=== PATIENT | female | born 1975 | race Caucasian/White ===

== ENCOUNTER 2025-03-29 21:42 | Emergency (ER) | payer SELFPAY ==
--- OUTSIDE RECORDS SUMMARY | 2025-01-30 11:30 | XMS_ITS ---
Author Organization Formerly [facility] vices Address [address] [place], [place] [phone] Care Team Providers Care Fire Protection Designer Name Role Phone Inna Gomez Primary Care Provider [phone] REASON FOR VISIT ER PMHF UTI 01/16 Social History Sex Assigned At : Social History Observation Description Sex Assigned At Female Encounters Encounter Location Date Provider Diagnosis Main [address] [place], [place] [id number] 01/30/2025 Inna Gomez Plan Of Treatment No Information Progress Notes * Nasrin CARTAGENA KDOB:1974 (50 yo F)Acc No.[id number]:01/30/2025 Medical Note Patient: Quynh CRndcarlota Keith Provider: Carlota Gomez :1975 A ge:49 Y S ex:Female Date:01/30/2025 Address:[address] [place], [place] [phone] Subjective: * Chief Complaints: * 1 . ER PMHF UTI 01/16. * Medical History: Objective: * Vitals: Assessment: Plan: * Treatment: * Billing Information: * Visit Code: * Procedure Codes: * Electronic signature of RAHEEM Zheng sa on 03/29/2025 at 09:51 PM EDT Sign off status: Pending * Provider: Carlota Gomez Date: 0 01/30/2025 Generated for Arnaudi chris/Zaid/eTransmitting on: 0 03/29/2025 09:51 PM EDT
[2025-03-29] VITALS (16 sets, daily range): BP systolic 120; BP diastolic 77; PULSE 52–73; TEMP 36.7; O2SAT 97–100; BMI 23.2
--- OUTSIDE RECORDS SUMMARY | 2025-03-29 21:51 | XMS_ITS | Encounter Summary ---
Author Organization [employer] s tem Address [id number] [address] [place] [address] Care Team Providers Care Torch Operator Name Role Phone Elle Padilla BOX SPRING FRAME BUILDER-LENS BLANK GAUGER Primary Care Provider + Reason for Visit * Reason Comments Med Refill Encounter Details Date Type Department Care Team (Late st Contact Info) Description 01/05/2019 Refill [facility] [address] [place] [phone] Shannon Khanna APRN-LENS BLANK GAUGER [address] [place] [phone] Major depressive disorder, recurrent episode, moderate (CMS-HCC) Social History Tobacco Use Types Packs/Day Years Used Date Smoking Tobacco: Every Day Cigarettes Smokeless Tobacco: Never Alcohol Use Standard Drinks/Week Comments No 0 (1 standard drink = 0.6 oz pur e alcohol) SOCIAL DRINKER PHQ-2 Answer Date Recorded PHQ-2 Score 6 09/22/2018 Childcare Answer Date Recorded Childcare Unknown 11/10/2018 Employment Answer Date Recorded Employment Unknown 11/10/2018 Comments No Sex and Gender Information Value Date Recorded Sex Assigned at Not on file Legal Sex Female 11:31 AM EDT Gender Identity Not on file Sexual Orientation Not on file documented as of this encounter Plan of Treatment Not on file documented as of this encounter Visit Diagnoses Diagnosis Major depressive disorder, recurrent episode, moderate (CMS-HCC) Major depressive disorder, recurrent episode, moderate documented in this encounter Additional Health Concerns Infection Onset Date Last Indicated Resolved Time COVID-19 Rule-Out 08/10/2021 08/10/2021 08/10/2021 6:40 PM EST COVID-19 Positive 08/10/2021 08/10/2021 08/31/2021 11:13 PM EST COVID-19 Positive 04/07/2022 04/07/2022 04/28/2022 11:12 PM EDT COVID-19 Rule-Out 12/25/2022 12/25/2022 12/25/2022 2:49 AM EDT Influenza 12/25/2022 12/25/2022 01/01/2023 11:1 2 PM EDT COVID-19 Rule-Out 06/02/2023 06/02/2023 06/02/2023 10:05 PM EDT COVID-19 Positive 06/10/2023 06/10/2023 07/01/2023 11:12 PM EST Respiratory Rule-Out 10/03/2024 10/03/2024 025 5:57 PM EST Assessment Noted Time PHQ-9 Depression Total Score: 6 09/22/19 19 8:00 AM EST documented as of this encounter Care Teams Torch Operator Relationship Specialty Start Date End Date Elle Padilla, BOX SPRING FRAME BUILDER-LENS BLANK GAUGER [address] [place] [address] PCP - General Family Medicine 10/03/24 documented as of this encounter
--- OUTSIDE RECORDS SUMMARY | 2025-03-29 21:52 | XMS_ITS | Clinical Summary ---
Author Organization [facility] Healthcare Address [address] [place] [address] Care Team Providers Care Farm Machinery Set Up Mechanic Name Role Phone Unavailable Primary Care Provider Unavailabl e Medications cetirizine (ZyrTEC) 10 MG tablet Take 10 mg by mouth Daily as needed Active cyclobenzaprine (Flexeril) 10 MG tablet Take 10 mg by mouth 2 (two) times a day as needed 06/06/2024 Active ibuprofen 800 MG tablet Take 800 mg by mouth every 6 (six) hours if needed 12/30/2023 Active naproxen (Naprosyn) 500 MG tablet Take 500 mg by mouth in the morning and 500 mg in the evening. Take with meals. 11/01/2023 Active Immunizations Immunization Administration Dates Next Due Influenza, injectable, quadr ivalent, preservative free 07/22/2019,05/17/2019,04/30/2017 Social History Tobacco Use Types Packs/Day Years Used Date Smoking Tobacco: Never Assessed Comments Unknown Sex and Gender Information Value Date Recorded Sex Assigned at Not on file Legal Sex Female 7:08 PM EDT Gender Identity Not on file Sexual Orientation Not on file Last Filed Vital Signs Vital Sign Reading Time Taken Comments Blood Pressure - - Pulse - - Temperature - - Respiratory Rate - - Oxygen Saturation - - Inhaled Oxygen Concentration - - Weight 54 kg (119 lb) 12/20/2019 12:00 PM EDT Height 165.1 cm (5' 5 ) 12/20/2019 12:00 PM EDT Body Mass Index 19.8 12/20/2019 12:00 PM EDT Plan of Treatment Not on file
--- OUTSIDE RECORDS SUMMARY | 2025-03-29 21:52 | XMS_ITS | Encounter Summary ---
Author [facility] tem Address [id number] [address] [place] [address] Care Team Providers Care Freight Solicitor Name Role Phone Valerie Elle Orr APRN-SENIOR NETWORK ADMINISTRATOR Primary Care Provider + Reason for Visit * Reason Onset Date Comments Med Refill 04/28/2017 Encounter Details Date Type Department Care Team (Late st Contact Info) Description 04/28/2017 [facility] [address] [place] [phone] Sindhu Banegas, RN Social History Tobacco Use Types Packs/Day Years Used Date Smoking Tobacco: Every Day Cigarettes Alcohol Use Standard Drinks/Week Comments No 0 (1 standard drink = 0.6 oz pur e alcohol) SOCIAL DRINKER Comments No Sex and Gender Information Value Date Recorded Sex Assigned at Not on file Legal Sex Female 11:31 AM EDT Gender Identity Not on file Sexual Orientation Not on file documented as of this encounter Plan of Treatment Not on file documented as of this encounter Visit Diagnoses Not on filedocumented in this encounter Additional Health Concerns Infection [...] Assessment Noted Time PHQ-9 Depression Total Score: 0 04/07/20 11:00 AM EDT documented as of this encounter Care Teams Freight Solicitor Relationship Specialty Start Date End Date Elle Padilla, SALVAGER HELPER-SENIOR NETWORK ADMINISTRATOR [address] [place] [address] PCP - General Family Medicine 10/03/24 documented as of this encounter
--- OUTSIDE RECORDS SUMMARY | 2025-03-29 21:52 | XMS_ITS | Encounter Summary ---
Author Organization [employer] s tem Address [id number] [address] [place] [address] Care Team Providers Care Blueprint Engineer Name Role Phone Elle Padilla [facility] Primary Care Provider + Reason for Visit * Reason Comments Med Refill Encounter Details Date Type Department Care Team (Late st Contact Info) Description 02/19/2018 Refill [facility] [address] [place] [address] [address] [place] [phone] Olena Ricci, [facility] [address] [place] [phone] Arthralgia of right knee Social History Tobacco Use Types Packs/Day Years [...] as of this encounter Visit Diagnoses Diagnosis Arthralgia of right knee documented in this encounter Additional Health Concerns [...] Assessment Noted Time PHQ-9 Depression Total Score: 018 10:00 AM EDT documented as of this encounter Care Teams Blueprint Engineer Relationship Specialty Start Date End Date lEle Padilla APRN-TUBE MACHINE OPERATOR [address] [place] [address] PCP - General Family Medicine 10/03/24 documented as of this encounter
--- OUTSIDE RECORDS SUMMARY | 2025-03-29 21:52 | XMS_ITS | Clinical Summary ---
Author Organization [employer] tem Address [id number] [address] [place] [address] Care Team Providers Care Repair Operator Name Role Phone Elle Padilla APRN-COMMERCIAL PARTS PROFESSIONAL Primary Care Provider + Allergies Active Allergy Reactions Criticality Noted Date Comments No Known Drug Allergies 04/07/2017 Medications fluticasone (FLONASE) 50 mcg/actuation nasal spray Administer 1 spray into each nostril daily. 15.8 mL 2 7 Active Additional Information Patient not taking.Reported on 02/05/2021 albuterol (PROVENTIL HFA;VENTOLIN HFA) 90 mcg/actuation inhalerIndicati ons:COVID-19 Inhale 2 puffs every 4 (four) hours as needed for wheezing. 18 g 1 Active naproxen (NAPROSYN) 500 mg tablet Take 1 tablet (500 mg total) by mouth in the morning and 1 tablet (500 mg total) in the evening. Take with meals. 30 tablet 4 Active ibuprofen (MOTRIN) 800 mg tablet Take 1 tablet (800 mg total) by mouth every 6 (six) hours as needed for pain. 30 tablet 4 Active diclofenac (VOLTAREN) 75 mg EC tablet Take 1 tablet (75 mg total) by mouth in the morning and 1 tablet (75 mg total) before bedtime. Active pregabalin (LYRICA) 50 mg capsule Take 1 capsule (50 mg total) by mouth 3 (three) times a day. Active Active Problems Problem Noted Date Diagnosed Date Hematuria 01/08/2021 Overview (02/05/2021): 01/08/21: Persistent micro hematuria with history of smoking. CT scan negative. Recommendation was for cysto to complete workup. The risks and benefits as outlined in the consent were discussed. All relevant drawings were reviewed. All questions were answered. The patient expressed understanding and wished to proceed 02/05/21: Cystoscopy performed normal Urinary incontinence 01/08/2021 Overview (01/08/2021): 01/08/21: Stress urinary incontinence. Will evaluate at time of cysto. May benefit from pelvic floor physical therapy. Major depressive disorder, recurrent episode, mo derate 04/07/2017 Encounters Date Type Department Care Team Description 02/02/2025 1:37 PM EDT - 02/02/2025 11:59 PM EDT Hospital Encounter [facility] - Ultrasound [address] [place] [address] Cyst of right ovary Discharge Disposition: Home 02/02/2025 Travel 01/16/2025 12:28 AM EDT - 01/16/2025 2:09 AM EDT Emergency [facility] - Emergency [address] [place] [address] Gilbert Gtz MD Acute cystitis with hematuria (Primary Dx); Constipation, unspecified constipation type Discharge Disposition: Home 01/16/2025 Travel from Last 3 Months Immunizations Immunization Administration Dates Next Due Influenza, Injectable, quadrivalent (PF) 017 Family History Medical History Relation Name Comments Bipolar disorder Brother Schizophrenia Brother Diabetes Father Arthritis Mother Heart disease Mother Hypertension Mother Depression Other Hypertension Other Breast cancer Neg Hx Relation Name Status Comments Brother Father Mother Alive Other Social History Tobacco Use Types Packs/Day Years Used Date Smoking Tobacco: Every Day Cigarettes Smokeless Tobacco: Never Tobacco Cessation:Ready to Q uit: Not Asked; Counseling Given: Not Answered Comments:nit interested in quitting Alcohol Use Standard Drinks/Week Comments Not Currently 0 (1 standard drink = 0.6 oz pur e alcohol) PHQ-2 Answer Date Recorded Total Score 0 03/21/2019 Childcare Answer Date Recorded Childcare Unknown 01/26/2019 Employment Answer Date Recorded Employment Unknown 01/26/2019 Hunger Screening Answer Date Recorded Within the past 12 months we worried whether our food would run out before we got money to buy more. Never True 01/16/2025 Within the past 12 months th e food we bought just didn't last and we didn't have money to get more. Never True 01/16/2025 Purpose - Life Answer Date Recorded Purpose and direction in life Unknown Comments No Sex and Gender Information Value Date Recorded Sex Assigned at Not on file Legal Sex Female 11:31 AM EDT Gender Identity Not on file Sexual Orientation Not on file Last Filed Vital Signs Vital Sign Reading Time Taken Comments Blood Pressure 106/73 01/16/2025 2:08 AM EDT Pulse 70 01/16/2025 2:08 AM EDT Temperature 36.7 C (98 F) 01/16/2025 12:35 AM EDT Respiratory Rate 18 01/16/2025 12:35 AM EDT Oxygen Saturation 98% 01/16/2025 2:08 AM EDT Inhaled Oxygen Concentration - - Weight 66.7 kg (147 lb) 01/16/2025 12:35 AM EDT Height 162.6 cm (5' 4 ) 01/16/2025 12:35 AM EDT Body Mass Index 25.23 01/16/2025 12:35 AM EDT Plan of Treatment Health Maintenance Due Date Last Done Comments Tobacco Counseling 1975 Depression Screening 1988 Adult BMI Follow Up Plan 1994 DTaP,Tdap and Td Vaccines (1 - Tdap) 1995 Pap Smear 1997 Mammogram 08/30/2021 08/30/2020, 04/18, 02/02/2018 Influenza Vaccine 04/17/2025 07/22/2019, , 04/30/2017 Adult BMI Screening 01/16/2026 01/16/2025 Tobacco Screening 01/16/2026 01/16/2025 Medical Devices Not on file Procedures Procedure Name Priority Date/Time Associated Diagnosis Comments US PELVIC WITH TRANSVAGINAL Routine 02/02/2025 2:15 PM EDT Cyst of right ovary CT ABDOMEN AND PELVIS WO CONT STAT 01/16/2025 1:23 AM EDT BLUE TOP STAT 01/16/2025 12:45 AM EDT RAINBOW DRAW STAT 01/16/2025 12:45 AM EDT BASIC METABOLIC PANEL STAT 01/16/2025 12:45 AM EDT CBC WITH AUTO DIFFERENTIAL STAT 01/16/2025 12:45 AM EDT POCT NURSING URINE MACROSCOPIC UA Routine 01/16/2025 12:43 AM EDT ER EXTRA URINE CULTURE STAT 01/16/2025 12:32 AM EDT ER EXTRA URINE STAT 01/16/2025 12:32 AM EDT MAMM SCREENING BILATERAL W CAD Routine 08/30/2020 8:32 AM EST Breast cancer screening by mammogram from Last 3 Months or Most Recently Relevant to Health Maintenance Results * Ultrasound pelvic with transvaginal (02/02/2025 2:15 PM EDT) Anatomical Region Laterality Modality Body, Pelvis Ultrasound 02/06/2025 1:02 PM EDT Narrative 02/06/2025 1:04 PM EDT Transabdominal and transvaginal pelvic ultrasound dated the 2024 at 1:51 PM INDICATION: Cyst of the right ovary. FINDINGS: Comparison is to [address] dated 01/16/2025. The uterus measures 8 x 5.2 x 4 cm and contains multiple fibroids for example, on the left side there is a fibroid measuring 3.6 x 3.1 x 2 cm, and on the right side there is a fibroid measuring 1.1 x 0.8 cm. The endometrium is 3.5 mm thick. The cervix is within normal limits. The right ovary measures 2.1 x 1.4 x 1.2 cm with color flow. The left ovary measures 2.9 x 2 x 1.4 cm with color flow. No free fluid seen in the pelvis. No adnexal masses. IMPRESSION: 1. No adnexal masses or free fluid. 2. Multiple fibroids lobe largest along the left uterus measuring 3.6 x 2.1 x 2 cm. 3. The endometrium is 3.5 mm thick. Finalized by Lavelle Nuno MD on 02/06/2025 1:04 PM Procedure Note Lavelle Nuno MD - 02/06/2025 Transabdominal and transvaginal pelvic ultrasound dated the 1:51 PM INDICATION: Cyst of the right ovary. FINDINGS: Comparison is to [address] dated 01/16/2025. The uterusmeasures 8 x 5.2 x 4 cm and contains multiple fibroids for example, on theleft side there is a fibroid measuring 3.6 x 3.1 x 2 cm, and on the rightside there is a fibroid measuring 1.1 x 0.8 cm. The endometrium is 3.5 mmthick. The cervix is within normal limits. The right ovary measures 2.1 x 1.4 x1.2 cm with color flow. The left ovary measures 2.9 x 2 x 1.4 cm withcolor flow. No free fluid seen in the pelvis. No adnexal masses. IMPRESSION: 1. No adnexal masses or free fluid. 2. Multiple fibroids lobe largest along the left uterus measuring 3.6 x2.1 x 2 cm. 3. The endometrium is 3.5 mm thick. Finalized by Lavelle Nuno MD on 02/06/2025 1:04 PM [facility] TREASURY ACCOUNTANT-COMMERCIAL PARTS PROFESSIONAL G US ORDERABLES Final Result * CT abdomen and pelvis without contrast (01/16/2025 1:23 AM EDT) Anatomical Region Laterality Modality Body, Abdomen, Body Covera N/A Compu lyndsey Tomography 01/16/2025 1:42 AM EDT Narrative 01/16/2025 1:46 AM EDT History: r flank pain. Exam/Technique: CT images of abdomen and pelvis were obtained without IV contrast. CT does automated exposure control was utilized. All CT scans at this facility use dose modulation, iterative reconstruction, and/or weight based dosing when appropriate to reduce radiation dose to as low as reasonably achievable. Comparison: CT abdomen pelvis 09/19/2020 Findings: Lung bases are unremarkable. There is 9 mm hypodense left hepatic lobe observations favored to represent simple cyst. Spleen, pancreas and adrenal glands are unremarkable. There is no hydronephrosis or dense renal stone. There is scarring at the upper pole of the right kidney with no gross renal swelling or perinephric stranding. Urinary bladder is grossly unremarkable. Uterus is bulky. Appendix and bowel loops are grossly unremarkable with moderate fecal burden. There is no free peritoneal air or fluid. There is no gross acute osseous injury. IMPRESSION: There is no hydronephrosis or dense renal stones. There is asymmetric scarring of the upper pole of the right kidney. Uterus is bulky with 3.4 cm extensive lytic soft tissue thickening likely fibroid. There is moderate fecal burden with nonobstructive bowel. Finalized by Yvonne Gill MD on 01/16/2025 1:46 AM Procedure Note Yvonne Gill MD - 01/16/2025 History: r flank pain. Exam/Technique: CT images of abdomen and pelvis were obtained without IVcontrast. CT does automated exposure control was utilized. All CT scansat this facility use dose modulation, iterative reconstruction, and/orweight based dosing when appropriate to reduce radiation dose to as low as reasonably achievable. Comparison: CT abdomen pelvis 09/19/2020 Findings: Lung bases are unremarkable. There is 9 mm hypodense left hepatic lobe observations favored torepresent simple cyst. Spleen, pancreas and adrenal glands are unremarkable. There is no hydronephrosis or dense renal stone. There is scarring at theupper pole of the right kidney with no gross renal swelling or perinephricstranding. Urinary bladder is grossly unremarkable. Uterus is bulky. Appendix and bowel loops are grossly unremarkable with moderate fecalburden. There is no free peritoneal air or fluid. There is no gross acute osseous injury. IMPRESSION: There is no hydronephrosis or dense renal stones. There isasymmetric scarring of the upper pole of the right kidney. Uterus is bulky with 3.4 cm extensive lytic soft tissue thickening likelyfibroid. There is moderate fecal burden with nonobstructive bowel. Finalized by Yvonen Gill MD on 01/16/2025 1:46 AM us Gilbert Gtz MD IMG CT ORDERABLES Final Resul t * (ABNORMAL) CBC auto differential (01/16/2025 12:45 AM EDT) WBC 12.7(H) 4 - 11 x10E9/L 01/16/2025 1:10 AM EDT [facility] RBC Count 4.81 3.8 - 5.2 X10E12/L 01/16/2025 1:10 AM EDT [facility] Hemoglobin 15.0 11.7 - 15.5 g/dL 01/16/2025 1:10 AM EDT [facility] Hematocrit 43.8 35 - 47 % 01/16/2025 1:10 AM EDT [facility] MCV 91 80 - 100 fL 01/16/2025 1:10 AM EDT [facility] MCH 31.1 27 - 34 pg 01/16/2025 1:10 AM EDT [facility] MCHC 34.2 32 - 36 g/dL 01/16/2025 1:10 AM EDT [facility] RDW 13.0 11.5 - 15 % 01/16/2025 1:10 AM EDT [facility] Platelet Count 226 150 - 450 X10E9/L 01/16/2025 1:10 AM EDT [facility] MPV 9.0 7 - 12 fL 01/16/2025 1:10 AM EDT [facility] Neutrophils % 66.2 % 01/16/2025 1:10 AM EDT [facility] Lymphocytes % 25.1 % 01/16/2025 1:10 AM EDT [facility] Monocytes % 7.1 % 01/16/2025 1:10 AM EDT [facility] Eosinophils % 1.0 % 01/16/2025 1:10 AM EDT [facility] Basophils % 0.6 % 01/16/2025 1:10 AM EDT [facility] Neutrophils Absolute (A) 8.4(H) 1.5 - 6.6 10*3/uL 01/16/2025 1:10 AM EDT [facility] Lymphocytes Absolute 3.2 1.0 - 3.5 10*3/uL 01/16/2025 1:10 AM EDT [facility] Monocytes Absolute 0.9 0.0 - 0.9 10*3/uL 01/16/2025 1:10 AM EDT [facility] Eosinophils Absolute 0.1 0.0 - 0.4 10*3/uL 01/16/2025 1:10 AM EDT [facility] Basophils Absolute 0.1 0.0 - 0.2 10*3/uL 01/16/2025 1:10 AM EDT [facility] Differential Type AUTOMATED DIFFERENTIAL 01/16/2025 1:10 AM EDT [facility] Blood Venous blood / Unknown 01/16/2025 12:45 AM EDT 01/16/2025 12:58 AM EDT us Gilbert Gtz MD LAB BLOOD ORDERABLES Final Re sult Performing Organization Address City/[facility]/ZIP Co de Phone Number [facility] [address] [place] [address], [place] * Light Blue Top (01/16/2025 12:45 AM EDT) Extra Tube Auto Resulted 01/16/2025 2:02 AM EDT [facility] Blood Venous blood / Unknown 01/16/2025 12:45 AM EDT 01/16/2025 12:58 AM EDT Gilbert Gtz MD LAB BLOOD ORDERABLES Final Re sult [facility] [address] [facility] [place] [address], [place] * (ABNORMAL) Basic Metabolic Panel (01/16/2025 12:45 AM EDT) SODIUM 134 134 - 146 mmol/L 01/16/2025 1:13 AM EDT [facility] POTASSIUM 3.5 3.5 - 5.0 mmol/L 01/16/2025 1:13 AM EDT [facility] CHLORIDE 107 98 - 109 mmol/L 01/16/2025 1:13 AM EDT [facility] CARBON DIOXIDE 23 22 - 32 mmol/L 01/16/2025 1:13 AM EDT [facility] ANION GAP 4(L) 5 - 15 mmol/L 01/16/2025 1:13 AM EDT [facility] BLOOD UREA NITROGEN 16 5 - 23 mg/dL 01/16/2025 1:13 AM EDT [facility] CREATININE 0.87 0.40 - 1.00 mg/dL 01/16/2025 1:13 AM EDT [facility] Comment:METHOD TRACEABLE TO IDMS STANDARD GLUCOSE 106(H) 65 - 99 mg/dL 01/16/2025 1:13 AM EDT [facility] CALCIUM 8.6 8.5 - 10.5 mg/dL 01/16/2025 1:13 AM EDT [facility] EGFR Non-Race Dependent 82 >=60 ml/min/1.7 3sq.m 01/16/2025 1:13 AM EDT [facility] Comment: eGFR not reported due to non-numeric value for Creatinine. Reported eGFR is based on the CKD-EPI 2020 equation that does not use a race coefficient. Blood Venous blood / Unknown 01/16/2025 12:45 AM EDT 01/16/2025 12:58 AM EDT us Gilbert Gtz MD LAB BLOOD ORDERABLES Final Re sult [address] [place] [address], [place] * (ABNORMAL) POCT Nursing Urine Macroscopic UA (01/16/2025 12:43 AM EDT) POC Urine Specific Onia 1.015 1.010, 1.015, 1.020, 1.025 01/16/2025 12:38 AM EDT [facility] POC Urine Leukocyte Esterase Trace(A) Negative 01/16/2025 12:38 AM EDT [facility] POC Urine Nitrite Negative Negative 01/16/2025 12:38 AM EDT [facility] POC Urine pH 6.0 5.0, 6.0, 6.5, 7.0, 7.5, 8.0, 8.5, 5.5 01/16/2025 12:38 AM EDT [facility] POC Urine Protein Negative Negative 01/16/2025 12:38 AM EDT [facility] POC Urine Glucose Negative Negative 01/16/2025 12:38 AM EDT [facility] POC Urine Ketones Negative Negative 01/16/2025 12:38 AM EDT [facility] POC Urine Urobilinogen 0.2 E.U./dL 01/16/2025 12:38 AM EDT [facility] POC Urine Bilirubin Negative Negative 01/16/2025 12:38 AM EDT [facility] POC Urine Blood/HGB Small(A) Negative 01/16/2025 12:38 AM EDT [facility] Urine 01/16/2025 12:4 3 AM EDT 01/16/2025 12:38 AM EDT us Gilbert Gtz MD POINT OF CARE TEST ORDERABLES Final Result [address] [place] [address], [place] * Extra Urine Culture (01/16/2025 12:32 AM EDT) Extra Tube Auto Resulted 01/16/2025 4:01 AM EDT [facility] Urine Urine specimen collection, clean catch / Unknown 01/16/2025 12:32 AM EDT 01/16/2025 3:29 AM EDT us Gilbert Gtz MD URINE ORDERABLES Final Result Performing Organization Address City/[facility] Co de Phone Number [facility] [address] [place] [address]. [place] [address], [place] * Extra Urine (01/16/2025 12:32 AM EDT) Extra Tube Auto Resulted 01/16/2025 4:01 AM EDT [facility] Urine Urine specimen collection, clean catch / Unknown 01/16/2025 12:32 AM EDT 01/16/2025 3:29 AM EDT us Gilbert Gtz MD URINE ORDERABLES Final Result Performing Organization Address [facility] de Phone Number [address] [place] [address], [place] * Mammography screening bilateral with CAD (08/30/2020 8:32 AM EST) Anatomical Region Laterality Modality Breast Bilateral Mammography 08/30/2020 10:3 2 AM EST Narrative 08/30/2020 10:34 AM EST MAMM SCREENING BILATERAL W CAD Synthetic full field digital mammographic C views of bilateral breasts in CC and MLO projections. Tomosynthesis images of bilateral breasts in CC and MLO projections. HISTORY: Screening. COMPARISON: Mammograms dating back to 06/17/2013 FINDINGS: The breasts are extremely dense, which lowers the sensitivity of mammography. No suspicious masses, no architectural distortion, no suspicious calcifications in bilateral breasts. No significant interval change. Computer-aided detection was used in the interpretation of this examination. IMPRESSION: Negative. No mammographic evidence for malignancy. BIRADS 1 - Negative. Normal interval follow-up in 12 months. OVERALL ASSESSMENT- Negative. A letter of notification will be sent to the patient regarding the results. Finalized by Lilia Daniel MD on 08/30/2020 10:34 AM 1 d MAMM 1 YR Procedure Note Lilia Daniel MD - 08/30/2020 MAMM SCREENING BILATERAL W CAD Synthetic full field digital mammographic C views of bilateral breasts inCC and MLO projections. Tomosynthesis images of bilateral breasts in CCand MLO projections. HISTORY: Screening. COMPARISON: Mammograms dating back to 06/17/2013 FINDINGS: The breasts are extremely dense, which lowers the sensitivity ofmammography. No suspicious masses, no architectural distortion, no suspiciouscalcifications in bilateral breasts. No significant interval change. Computer-aided detection was used in the interpretation of thisexamination. IMPRESSION: Negative. No mammographic evidence for malignancy. BIRADS 1 - Negative. Normal interval follow-up in 12 months. OVERALL ASSESSMENT- Negative. A letter of notification will be sent to the patient regarding theresults. Finalized by Lilia Daniel MD on 08/30/2020 10:34 AM 1 d MAMM 1 YR Chloé Arevalo MD [facility] MAMMOGRAPHY ORDERABLES Final Result from Last 3 Months or Most Recently Relevant to Health Maintenance Insurance [place] [address] Member Subscriber Plan / Payer (Ef fective 2022-Present) Name:Nasrin Cartagena Relation to Subscriber:Self Name:Nasrin Cartagena Payer ID:Not on file Type:Not on file Address: [address] Care Teams Repair Operator Relationship Specialty Start Date End Date Elle Padilla, CHAD-COMMERCIAL PARTS PROFESSIONAL [address] [place] [address] PCP - General Family Medicine 10/03/24
--- OUTSIDE RECORDS SUMMARY | 2025-03-29 21:52 | XMS_ITS | Encounter Summary ---
Author Organization [employer] tem Address [facility] [id number] [address] [place] [address] Care Team Providers Care Turbine Operator Name Role Phone Elle Padilla Primary Care Provider + Reason for Visit * Reason Onset Date Comments Med Refill 08/07/2017 Encounter Details Date Type Department Care Team (Late st Contact Info) Description 08/07/2017 Refill [facility] [address] [place] [address] [phone] Shannon Khanna APRN-CNP [address] [facility] [address] [place] [address] Social History Tobacco Use Types Packs/Day Years [...] on file documented as of this encounter Miscellaneous Notes * Telephone Encounter - TAMMY Guevara - 08/07/2017 10:38 AM EST Will order the Continuation packs documented in this encounter Plan of Treatment Not on [...] Assessment Noted Time PHQ-9 Depression Total Score: 10 017 8:00 AM EST documented as of this encounter Care Teams Turbine Operator Relationship Specialty Start Date End Date Elle Padilla, TRANSPORTATION DIRECTOR-FRUIT PACKER [address] [address] PCP - General Family Medicine 10/03/24 documented as of this encounter
--- NOTE | 2025-03-29 21:55 | ECG_ITS ---
[facility] Test Date: 2025-03-29 Pat Name: JACOB AGRAWAL Department: Room: - Gender: Female Grain Buyer: : 1975 Requested By: [id number] Order Number: [id number] Reading MD: ANA LILIA CUELLO M.D. Measurements Intervals [place] Rate: 78 P: 80 CO: 166 QRS: 84 QRSD: 70 T: 60 QT: 380 QTc: 413 Interpretive Statements 1100 Sinus rhythm 8102 Low QRS voltage in chest leads 9120 atypical ECG No previous ECG available for comparison Electronically Signed On 03-30-2025 19:25:45 EDT by ANA LILIA CUELLO M.D.
--- NOTE | 2025-03-29 22:02 | ED.CHESTPAI1 ---
HPI - Chest Pain General Chief Complaint: Chest Pain Stated Complaint: CHEST PAINS Time Seen by Provider: 03/29/25 22:00 Source: patient Mode of arrival: walk-in History of Present Illness HPI narrative: left sided chest pain since last PM. Pain increases with change in position. smoker of cigarettes but now vaping. cough productive of phlegm. No nausea or abdominal pain Related Data Allergies Allergy/AdvReac Type Severity Reaction Status Date / Time No Known Drug Allergies Allergy Verified 03/29/25 21:50 Review of Systems ROS Status of ROS 10 or more systems reviewed and unremarkable except as noted in history and below PFSH PFSH Social History Little interest or pleasure in doing things: not at all Feeling down, depressed, or hopeless: not at all Exam Constitutional Vital Signs, click to edit/add: Last Vital Signs Temp 98.1 F 03/29/25 21:46 Pulse 53 L 03/30/25 00:10 Resp 18 03/30/25 00:10 BP 110/72 03/30/25 00:08 Pulse Ox 99 03/30/25 00:10 O2 Del Method Room Air 03/29/25 21:46 Common normals: no apparent distress, average body habitus, oriented x3, no limitations, healthy appearing, alert and well nourished [facility] Common normals: normocephalic and head/scalp atraumatic Eye Common normals: EOMs intact bilaterally and conjunctivae normal Chest Other: left chest wall tender and reproduces symptoms she also has increased pain of her chest when she rises up from supine position Respiratory Common normals: normal respiratory effort, no retractions, no use of accessory muscles and clear to auscultation bilaterally Cardio Common normals: regular rate, regular rhythm, S1 normal heart sound and S2 normal heart sound GI Common normals: Normal to inspection, nondistended, normoactive bowel sounds present, soft to palpation and non-tender Extremity Common normals: normal to inspection Neuro Common normals: oriented x3, CN's II-XII intact bilaterally, moves all extremities and no focal motor deficits Psych Appearance: grossly normal Course Vital Signs Vital signs: Vital Signs Temperature 98.1 F 03/29/25 21:46 Pulse Rate 71 03/29/25 21:46 Respiratory Rate 16 03/29/25 21:46 Blood Pressure 120/77 03/29/25 21:46 Pulse Oximetry 98 03/29/25 21:46 Oxygen Delivery Method Room Air 03/29/25 21:46 Temperature 98.1 F 03/29/25 21:46 Pulse Rate 53 L 03/30/25 00:10 Respiratory Rate 18 03/30/25 00:10 Blood Pressure 110/72 03/30/25 00:08 Pulse Oximetry 99 03/30/25 00:10 Oxygen Delivery Method Room Air 03/29/25 21:46 MDM - Chest Pain MDM Narrative Medical decision making narrative: patient presents with musculoskeletal chest pain. pain worse with cough and change in position. Cough productive of phlegm. No fever. cxray is clear. troponin and d-dimer neg. Patient informed of working diagnosis of chest wall pain/pleurisy. will plan coverage with prednisone for her reactive airway cough and course of zpak. Advised to follow up with her doctor for recheck Lab Data Labs: Lab Results 03/29/25 Range/Units 22:09 WBC 8.7 (4.0-11.0) 10^3/uL RBC 4.59 (4.20-5.40) 10^6/uL Hgb 14.3 (12.0-16.0) g/dL Hct 42.4 (36.0-48.0) % MCV 92.4 (81.0-99.0) fL MCH 31.2 (26.7-34.0) pg MCHC 33.7 (29.9-35.2) g/dL RDW 12.6 (11.0-15.0) % Plt Count 214 (150-450) 10^3/uL MPV 11.4 (9.5-13.5) fL Neut % (Auto) 57.7 (43.0-75.0) % Lymph % (Auto) 33.6 (20.5-60.0) % [place] % (Auto) 6.6 (1.7-12.0) % Eos % (Auto) 1.4 (0.9-7.0) % Baso % (Auto) 0.5 (0.2-2.0) % Neut # (Auto) 5.0 (1.4-6.5) 10^3/uL Lymph # (Auto) 2.9 (1.2-3.8) 10^3/uL [place] # (Auto) 0.6 (0.3-0.8) 10^3/uL Eos # (Auto) 0.1 (0.0-0.7) 10^3/uL Baso # (Auto) 0.0 (0.0-0.1) 10^3/uL Abs Immat Gran (auto) 0.02 (0.00-0.03) 10^3/uL Imm/Tot Granulo (auto) 0.2 (0.0-0.5) % D-Dimer <0.19 (<=0.59) mg/L FEU Sodium 140 (136-145) mmol/L Potassium 3.8 (3.5-5.1) mmol/L Chloride 106 (98-107) mmol/L Carbon Dioxide 26.9 (21.0-32.0) mmol/L Anion Gap 10.9 BUN 10.0 (7.0-18.0) mg/dL Creatinine 0.84 (0.55-1.02) mg/dL Est GFR ( Amer) >60 (>=60 mL/min/1.73m^2) Est GFR (Non-Af Amer) >60 (>=60 mL/min/1.73m^2) BUN/Creatinine Ratio 11.9 Glucose 97 (74-106) mg/dL Calcium 9.1 (8.5-10.1) mg/dL Troponin I High Sens <4.0 L (4.0-51.3) pg/mL Imaging Data Chest x-ray: Radiologist's impression: ITS Impressions Chest X-Ray 03/29/25 22:05 IMPRESSION: No acute process. Impression dictated by: Caden Hagan M.D. 03/29/2025 10:53 PM Dictation Location: [employer] Electronically authenticated by: [id number] Y Date: 03/29/2025 22:53 Discharge Plan Discharge Chief Complaint: Chest Pain Clinical Impression: Costalchondritis, Cough Patient Disposition: Home, Self-Care Print Language: [place] Citizen Instructions: Costochondritis (ED), Acute Cough (ED) Additional Instructions: follow up with your family doctor next week for recheck Referrals: [facility] [Primary Care Provider, Unknown] - 1 week Discharge Date/Time: 03/30/25 00:26
--- NOTE | 2025-03-29 22:05 | XR_ITS ---
[place] [id number] Patient Name: JACOB AGRAWAL MRN: [id number] date: 1975 Sex: F Assigned Patient Location: ER Current Patient Location: ED.MAIN Accession/Order Number: [id number] Exam Date: 03/29/2025 22:45 Report Date: 03/29/2025 22:53 At the request of: GISSELLE LARA MD Procedure: XR chest 1V Plain film chest Single view HISTORY: Chest pain COMPARISON: None FINDINGS: SUPPORT DEVICES: None POSTSURGICAL CHANGES: None HEART: Within normal limits PULMONARY RY: Within normal limits MEDIASTINUM: Unremarkable LUNGS AND PLEURA: No acute lung process, pleural effusion or pneumothorax identified. BONY STRUCTURES: Intact ADDITIONAL FINDINGS None XR/XR chest 1V IMPRESSION: No acute process. Impression dictated by: Caden Hagan M.D. 03/29/2025 10:53 PM Dictation Location: [place] [address] Electronically authenticated by: [id number] Y Date: 03/29/2025 22:53
[2025-03-29 23:01] LABS: Hematocrit 42.4 % (36.0-48.0); Hemoglobin 14.3 g/dL (12.0-16.0); Immature Granulocytes Abs Auto 0.02 10^3/uL (0.00-0.03); Immature Granulocytes Pct Auto 0.2 % (0.0-0.5); Lymphocytes Absolute Auto 2.9 10^3/uL (1.2-3.8); Mean Corpuscular HGB Conc 33.7 g/dL (29.9-35.2); Mean Corpuscular Hemoglobin 31.2 pg (26.7-34.0); Mean Corpuscular Volume 92.4 fL (81.0-99.0); Platelet Count 214 10^3/uL (150-450); Red Blood Count 4.59 10^6/uL (4.20-5.40); White Blood Count 8.7 10^3/uL (4.0-11.0)
--- NOTE | 2025-03-29 23:01 | PC.NURSE ---
patient states that she has had left sided chest pain worsening with inspiration. patient states she has been coughing alot. is trying to quit smoking at this time. denies any SOB
[2025-03-29 23:20] LABS: Anion Gap 10.9; Blood Urea Nitrogen 10.0 mg/dL (7.0-18.0); Calcium 9.1 mg/dL (8.5-10.1); Carbon Dioxide 26.9 mmol/L (21.0-32.0); Chloride 106 mmol/L (98-107); Estimated GFR (African America >60 (>=60 mL/min/1.73m^2); Estimated GFR (Non-African Ame >60 (>=60 mL/min/1.73m^2); Glucose 97 mg/dL (74-106); Potassium 3.8 mmol/L (3.5-5.1); Sodium 140 mmol/L (136-145)
[2025-03-30] VITALS: PULSE 58; O2SAT 98
[2025-03-30] MEDS: KETOROLAC TROMETHAMINE 30 MG/ML VIAL IVP (00:03)
[2025-03-30] MEDS: AZITHROMYCIN 250 MG TABLET 500 MG PO (00:03)
[2025-03-30] MEDS: METHYLPREDNISOLONE SOD SUCC PF 125 MG/2 ML VIAL IVP (00:04)
[2025-03-30 00:08] VITALS: BP 110/72; PULSE 55; O2SAT 99
[2025-03-30 00:10] VITALS: PULSE 53; O2SAT 99
== END 2025-03-30 00:26 | disposition home or self-care (01) ==
PROVIDERS: Emergency Provider Internal Medicine
DX: M94.0 Chondrocostal junction syndrome [Tietze] (principal); R05.9 Cough, unspecified; R07.89 Other chest pain
CPT/HCPCS: 36415; 71045; 80048; 84484; 85025; 85378; 93005; 96374; 96375; 99285; J1885; J2919

== ENCOUNTER 2025-05-07 21:27 | Emergency (ER) | payer SELFPAY ==
--- OUTSIDE RECORDS SUMMARY | 2025-01-04 12:00 | XMS_ITS ---
Author Organization [facility] vices Address [address] [place], [place] [id number] Care Team Providers Care Trailer Assembler Name Role Phone Inna Gomez Primary Care Provider REASON FOR VISIT f/u BV, STD infection recheck Social History Sex Assigned At : Social History Observation Description Sex Assigned At Female Encounters Encounter Location Date Provider Diagnosis Main [address] [place], [place] [id number] 01/04/2025 Inna Gomez Plan Of Treatment No Information Progress Notes * HUGOPIEDADNasrin KDOB:1974 (50 yo F)Acc No.[id number]:01/04/2025 Medical Note Patient: Nasrin CR Provider: Kirby Gomez :1975 A ge:49 Y S ex:Female Date:01/04/2025 Address:[address] [place], [place] [phone] Subjective: * Chief Complaints: * 1 . f/u BV, STD infection recheck. * Medical History: Objective: * Vitals: Assessment: Plan: * Treatment: * Billing Information: * Visit Code: * Procedure Codes: * Electronic signature of RAHEEM Zheng sa on 05/07/2025 at 09:36 PM EDT Sign off status: Pending * Provider: Kirby Gomez Date: 0 01/04/2025 Generated for Arnaudi ng/Faxing/eTransmitting on: 0 05/07/2025 09:36 PM EDT
--- OUTSIDE RECORDS SUMMARY | 2025-01-30 11:30 | XMS_ITS ---
Author Organization [facility]ly [facility] vices Address [address] [place], [place] [id number] Care Team Providers Care Sales Representative Adding Machines Name Role Phone Inna Gomez Primary Care Provider REASON FOR VISIT ER PMHF UTI 01/16 Social History Sex Assigned At : Social History Observation Description Sex Assigned At Female Encounters Encounter Location Date Provider Diagnosis Main [address] [place], [place] [id number] 01/30/2025 Inna Gomez Plan Of Treatment No Information Progress Notes * Nasrin CARTAGENA KDOB:1974 (50 yo F)Acc No.[id number]:01/30/2025 Medical Note Patient: Quynh CRndcarlota Keith Provider: Carlota Gomez :1975 A ge:49 Y S ex:Female Date:01/30/2025 Address:[address] [place], [place] [phone] Subjective: * Chief Complaints: * 1 . ER PMHF UTI 01/16. * Medical History: Objective: * Vitals: Assessment: Plan: * Treatment: * Billing Information: * Visit Code: * Procedure Codes: * Electronic signature of RAHEEM Zheng sa on 05/07/2025 at 09:36 PM EDT Sign off status: Pending * Provider: Carlota Gomez Date: 0 01/30/2025 Generated for Arnaudi chris/Zaid/eTransmitting on: 0 05/07/2025 09:36 PM EDT
--- OUTSIDE RECORDS SUMMARY | 2025-03-29 12:00 | XMS_ITS ---
Author Organization Formerly [facility] vices Address [address] [place], [place] [phone] Care Team Providers Care Retention Specialist Name Role Phone Inna Gomez Primary Care Provider REASON FOR VISIT pain, hand Social History Sex Assigned At : Social History Observation Description Sex Assigned At Female Encounters Encounter Location Date Provider Diagnosis Main [address] [place] [id number] 03/29/2025 Inna Gomez Plan Of Treatment No Information Progress Notes * Nasrin CARTAGENA KDOB:1974 (50 yo F)Acc No.[id number]:03/29/2025 Medical Note Patient: Nasrin CR Provider: Kirby Gomez :1975 A ge:50 Y S ex:Female Date:03/29/2025 Address:[address] [place], [place] [phone] Subjective: * Chief Complaints: * 1 . Pain, hand. * Medical History: Objective: * Vitals: Assessment: Plan: * Treatment: * Billing Information: * Visit Code: * Procedure Codes: * Electronic signature of RAHEEM Zheng sa on 05/07/2025 at 09:36 PM EDT Sign off status: Pending * Provider: Kirby Gomez Date: 0 03/29/2025 Generated for Lea perez/Zaid/eTransmitting on: 05/07/2025 09:36 PM EDT
--- OUTSIDE RECORDS SUMMARY | 2025-05-05 03:21 | XMS_ITS | Encounter Summary ---
Author Organization [employer] [facility] tem Address [id number] [address] [place] [address] Care Team Providers Care Teachers Assistant Name Role Phone ValerieElle Kirby BONILLA-CINDER WORKER Primary Care Provider + Reason for Visit * Reason Comments Sore Throat Pt presents to ED C/ O sore throat x1day. Pt states sore throat started yesterday and has been getting worse. Pt states runny nose, cough, and chills x1day. Pt states she's a smoker and has been smoking with the pain. Pt states 10/10 pain at this time. Pt states her throat feels like its on fire . Encounter Details Date Type Department Care Team (Late st Contact Info) Description 05/05/2025 3:21 AM EDT - 05/05/2025 4:22 AM EDT Emergency [facility] - Emergency [address] [place] [address] Edwin Unger MD [address] [place] [address] Sore throat (Primary Dx); Acute cough Discharge Disposition: Home Social History Tobacco Use Types Packs/Day Years Used Date Smoking Tobacco: Every Day Cigarettes Smokeless Tobacco: Never Comments:nit interested in q uitting Alcohol Use Standard Drinks/Week Comments Not Currently [...] got money to buy more. Never True 05/05/2025 Within the past 12 months th e food we bought just didn't last and we didn't have money to get more. Never True 05/05/2025 Purpose - Life Answer Date Recorded Purpose and direction in life Unknown Comments No Sex and Gender Information Value Date Recorded Sex Assigned at Not on file Legal Sex Female 11:31 AM EDT Gender Identity Not on file Sexual Orientation Not on file documented as of this encounter Last Filed Vital Signs Vital Sign Reading Time Taken Comments Blood Pressure 104/81 05/05/2025 4:00 AM EDT Pulse 80 05/05/2025 4:00 AM EDT Temperature 36.5 C (97.7 F) 05/05/2025 3:24 AM EDT Respiratory Rate 18 05/05/2025 4:00 AM EDT Oxygen Saturation 97% 05/05/2025 4:00 AM EDT Inhaled Oxygen Concentration - - Weight 58.1 kg (128 lb) 05/05/2025 3:24 AM EDT Height 160 cm (5' 3 ) 05/05/2025 3:24 AM EDT Body Mass Index 22.67 05/05/2025 3:24 AM EDT documented in this encounter Discharge Instructions * Discharge Instructions* Edwin Unger MD - 05/05/2025 3:56 AM EDT Please call and schedule follow up with your primary care physician in the next few days for re-evaluation and to discuss today's findings, as we discussed if you develop any throat or neck swelling,difficulty breathing, chest pain, any other worsening or concerning symptoms return to the emergency department. A test for virus infection has been sent, you may follow these results up on [facility]. * Attachments The following attachments cannot be sent through Care Everywhere. * Sore Throat? Adult ED (Rwandan) * Cough in adults ??? ED discharge instructions (Rwandan) documented in this encounter Medications at Time of Discharge albuterol (PROVENTIL HFA;VENTOLIN HFA) 90 mcg/actuation inhalerIndicatio ns:COVID-19 Inhale 2 puffs every 4 (four) hours as needed for wheezing. 18 g 08/10/2021 diclofenac (VOLTAREN) 75 mg EC tablet Take 1 tablet (75 mg total) by mouth in the morning and 1 tablet (75 mg total) before bedtime. fluticasone (FLONASE) 50 mcg/actuation nasal spray Administer 1 spray into each nostril daily. 15.8 mL 2 04/07/2017 ibuprofen (MOTRIN) 800 mg tablet Take 1 tablet (800 mg total) by mouth every 6 (six) hours as needed for pain. 30 tablet 12/30/2023 naproxen (NAPROSYN) 500 mg tablet Take 1 tablet (500 mg total) by mouth in the morning and 1 tablet (500 mg total) in the evening. Take with meals. 30 tablet 11/01/2023 pregabalin (LYRICA) 50 mg capsule Take 1 capsule (50 mg total) by mouth 3 (three) times a day. documented as of this encounter Plan of Treatment Not on file documented as of this encounter Procedures Procedure Name Priority Date/Time Associated Diagnosis Comments SARS/FLU A+B/RSV BY NAAT/MOLECULAR (M4RT COLLECTION TUBE) STAT 05/05/2025 3:31 AM EDT POCT RAPID STREP A Routine 05/05/2025 3: 30 AM EDT documented in this encounter Results * SARS/FLU A+B/RSV by NAAT/Molecular (M4RT Collection Tube) (05/05/2025 3:31 AM EDT) FLU A PCR Negative Negative 05/05/2025 4:21 AM EDT [facility] FLU B PCR Negative Negative 05/05/2025 4:21 AM EDT [facility] RSV BY PCR Negative Negative 05/05/2025 4:21 AM EDT [facility] SARS COV 2 BY PCR Not Detected Not Detected 05/05/2025 4:21 AM EDT [facility] Swab Nasopharyngeal structure / Unknown 05/05/2025 3:31 AM EDT 05/05/2025 3:35 AM EDT Narrative [facility] - 05/05/2025 4:21 AM EDT The Xpert Xpress SARS-CoV-2/Flu/RSV Plus test is a rapid, multiplexed real-time RT-PCR test intended for the simultaneous qualitative detection and differentiation of SARS-CoV-2, influenza A, influenza B and respiratory syncytial virus (RSV) viral RNA from individuals suspected of respiratory viral infection consistent with COVID-19 by Their healthcare provider. This test has not been validated in asymptomatic patients. The Xpert Xpress SARS-CoV-2 test is intended for use by qualified and trained operators who are performing tests using either [employer] DX or [employer] systems and is limited to laboratories that meet the CLIA requirements to perform high and moderate complexity tests. The Xpert Xpress SARS-CoV-2/Flu/RSV Plus is only for use under the Food and Drug Administration's Emergency Use Authorization. Results are for the simultaneous detection and differentiation of SARS-CoV-2, influenza A, influenza B and RSV nucleic acids in clinical specimens. SARS-CoV-2, influenza A, influenza B and RSV RNA identified by this test are generally detectable in upper respiratory samples during the acute phase of infection. Positive results are Indicative of the presence of the identified virus, but do not rule out bacterial infection or co-infection with other pathogens not detected by this test. Clinical correlation with patient history and other diagnostic information is necessary to determine patient infection status. The agent detected may not be the definite cause of disease. Negative results do not preclude SARS-CoV-2, influenza A, influenza B and RSV infection and should not be used as the sole basis for treatment or other patient management decisions. Negative results must be combined with clinical observations, patient history and epidemiological information. An Invalid result may occur with specimen-associated inhibition unable to be resolved with specimen repeat. Fact Sheet for Healthcare Providers: https://www.fda.gov/media/420245/download Fact Sheet for Patients: https://www.fda.gov/media/350970/download Edwin Unger MD MICROBIOLOGY - GENERAL ORDER TAWNYA Final Result [facility] [address] [place] [address] [place] [address], * POCT rapid strep A (05/05/2025 3:30 AM EDT) [facility] Signature POC Rapid Strep Screen Negative Negative 05/05/2025 9:52 AM EDT [facility] 05/05/2025 3:30 AM EDT 05/05/2025 9:51 AM EDT us Edwin Unger MD POINT OF CARE TEST ORDERABLE S Final Result Performing Organization Address [facility] [[email or web address]] Co de Phone Number [address] [place] [address], [place] documented in this encounter Visit Diagnoses Diagnosis Sore throat- Primary Acute pharyngitis Acute cough documented in this encounter Administered Medications Inactive Administered Medications - up to 3 most recent administrations Medication Order MAR Action Action Date Dose Rate Site dexAMETHasone sodium phos (PF) (DECADRON) injection 10 mg 10 mg, oral, Once, On Thu05/05/25 at 0354, For 1 dose, DexAMETHasone injection for ORAL use. May mix injection with oral flavored syrup. Administer immediately. May alter blood glucose or insulin requirements. Look-alike/sound-alike medication - verify indication for use. Given 05/05/2025 4:01 AM EDT 10 mg ketorolac (TORADOL) injection 15 mg 15 mg, intramuscular, Once, On Thu05/05/25 at 0354, For 1 dose, Look-alike/sound-alike medication - verify indication for use. Duration of therapy is not to exceed 5 days. Maximum recommended dose + 120mg/24 hours. Given 05/05/2025 4:00 AM EDT 15 mg Left Deltoid documented in this encounter Active and Recently Administered Medications Times are shown in EDT. Scheduled Medication Order 05/03/2025 05/04/2025 05/05/2025 dexAMETHasone sodium phos (PF) (DECADRON) injection 10 mg (COMPLETED) 10 mg, oral, Once, On 9/19/25 at 0354, For 1 dose, DexAMETHasone injection for ORAL use. May mix injection with oral flavored syrup. Administer immediately. May alter blood glucose or insulin requirements. Look-alike/sound-alike medication - verify indication for use. 0401 (Given - Provid er: Art Handy RN) ketorolac (TORADOL) injection 15 mg (COMPLETED) 15 mg, intramuscular, Once, On Thu05/05/25 at 0354, For 1 dose, Look-alike/sound-alike medication - verify indication for use. Duration of therapy is not to exceed 5 days. Maximum recommended dose + 120mg/24 hours. 0400 (Given - Provid er: Art Handy RN) documented in this encounter Additional Health Concerns Infection Onset Date Last Indicated Resolved Time Respiratory Rule-Out 05/05/2025 05/05/2025 025 4:21 AM EDT Assessment Noted Time PHQ-9 Depression Total Score: 0 03/21/20 19 7:00 AM EDT documented as of this encounter Care Teams Teachers Assistant Relationship Specialty Start Date End Date Elle Padilla APRN-CINDER WORKER [address] [place] [address] PCP - General Family Medicine 10/03/24 documented as of this encounter
[2025-05-07 21:31] VITALS: BP 105/75; PULSE 94; TEMP 36.6; O2SAT 95; BMI 23.9
[2025-05-07 21:34] VITALS: PULSE 97
--- NOTE | 2025-05-07 21:34 | ECG_ITS ---
The [facility] Test Date: 2025-05-07 Pat Name: JACOB AGRAWAL Department: Room: - Gender: Female Electronic Plotting System Operator: : 1975 Requested By: Nico Escalante Order Number: [id number] Reading MD: ANA LILIA CUELLO M.D. Measurements Intervals [place] Rate: 97 P: 79 MD: 168 QRS: 84 QRSD: 68 T: 63 QT: 338 QTc: 393 Interpretive Statements 1100 Sinus rhythm 9110 normal ECG Compared to ECG 03/29/2025 21:55:28 No significant changes Electronically Signed On 05-08-2025 17:17:11 EDT by ANA LILIA CUELLO M.D.
--- NOTE | 2025-05-07 21:35 | XR_ITS ---
The [address] [address] Patient Name: JACOB AGRAWAL MRN: [id number] date: 1975 Sex: F Assigned Patient Location: ED.MAIN Current Patient Location: Accession/Order Number: [id number] Exam Date: 05/07/2025 23:40 Report Date: 05/08/2025 07:47 At the request of: [id number] TORRES Procedure: XR chest 1V XR chest 1V 05/07/2025 9:48 PM SIGNS AND SYMPTOMS: ^shortness of breath ^Y PROTOCOL: Single view of the chest COMPARISON: 03/29/2025 FINDINGS: The trachea is midline. The heart and mediastinal structures are within normal limits. Calcified granulomas are noted in the right mid chest similar to the prior exam. The lung parenchyma is clear, otherwise. The bony thorax is intact. XR/XR chest 1V IMPRESSION: No acute cardiopulmonary pathology. Impression dictated by: Nilton Lane M.D. 05/08/2025 7:47 AM Dictation Location: [place] [address] Electronically authenticated by: [id number] Y Date: 05/08/2025 07:47
--- OUTSIDE RECORDS SUMMARY | 2025-05-07 21:36 | XMS_ITS | Encounter Summary ---
Author Organization [employer] tem Address [id number] [address] [place] [address] Care Team Providers Care Car Coupler Name Role Phone Elle Padilla WEB SEARCH EVALUATOR-BORE MILL OPERATOR Primary Care Provider + Reason for Visit * Reason Comments Med Refill Encounter Details Date Type Department Care Team (Late st Contact Info) Description 01/05/2019 Refill [facility] [address] [place] [phone] Shannon Khanna APRN-BORE MILL OPERATOR [address] [place] [id number] Major depressive disorder, recurrent episode, moderate (CMS-HCC) [...] Rule-Out 10/03/2024 10/03/2024 025 5:57 PM EST Respiratory Rule-Out 05/05/2025 05/05/2025 025 4:21 AM EDT Assessment Noted Time PHQ-9 Depression Total Score: 6 09/22/19 19 8:00 AM EST documented as of this encounter Care Teams Car Coupler Relationship Specialty Start Date End Date Elle Padilla, WEB SEARCH EVALUATOR-BORE MILL OPERATOR [address] [place] [address] PCP - General Family Medicine 10/03/24 documented as of this encounter
--- OUTSIDE RECORDS SUMMARY | 2025-05-07 21:37 | XMS_ITS | Clinical Summary ---
Author Organization [facility] Healthcare Address [address] [place] [address] Care Team Providers Care Skiff Operator Name Role Phone Unavailable Primary Care Provider [...]
--- OUTSIDE RECORDS SUMMARY | 2025-05-07 21:37 | XMS_ITS | Encounter Summary ---
Author Organization [employer] tem Address [facility] [place]-[id number] [address] [place] [address] Care Team Providers Care Veneer Splicer Name Role Phone Elle Padilla IN[facility]CTOR [facility] Primary Care Provider + Reason for Visit * Reason Comments Med Refill Encounter Details Date Type Department Care Team (Late st Contact Info) Description 02/19/2018 Refill [facility] [address] [place] [address] [place] [address] Olena Ricci, INSTRUCTOR [facility] [address] [place] [phone] Arthralgia of right knee Social History Tobacco [...] documented as of this encounter Care Teams Veneer Splicer Relationship Specialty Start Date End Date Elle Padilla, INSTRUCTOR EXTENSION WORK-TRANSMISSION SYSTEMS OPERATOR [facility] [place] [address] PCP - General Family Medicine 10/03/24 documented as of this encounter
--- OUTSIDE RECORDS SUMMARY | 2025-05-07 21:37 | XMS_ITS | Encounter Summary ---
Author Organization [employer] tem Address [facility]-[id number] [address] [place] [address] Care Team Providers Care Residential Child Care Counselor Name Role Phone ValerieElle Carlota BONILLA-DIFFUSION FURNACE OPERATOR Primary Care Provider + Encounter Details Date Type Department Care Team (Latest Contact Info) Description 05/05/2025 Travel Social History Tobacco Use Types Packs/Day Years [...] Time PHQ-9 Depression Total Score: 0 03/21/20 7:00 AM EDT documented as of this encounter Care Teams Residential Child Care Counselor Relationship Specialty Start Date End Date Elle Padilla, UNIFIED COMMUNICATIONS ARCHITECT-DIFFUSION FURNACE OPERATOR [address] [place] [address] PCP - General Family Medicine 10/03/24 documented as of this encounter
--- OUTSIDE RECORDS SUMMARY | 2025-05-07 21:37 | XMS_ITS | Clinical Summary ---
Author Organization [employer] tem Address [id number] [address] [place] [address] Care Team Providers Care Auto Parts Clerk Name Role Phone Elle Padilla APRN-ALMOND PAN FINISHER Primary Care Provider + Allergies Active Allergy [...] Encounters Date Type Department Care Team Description 05/05/2025 3:21 AM EDT - 05/05/2025 4:22 AM EDT Emergency [facility] - Emergency [address] [place] [id number] Edwin Unger MD Sore throat (Primary Dx); Acute cough Discharge Disposition: Home 05/05/2025 Travel from Last 3 Months Immunizations Immunization [...] Mass Index 22.67 05/05/2025 3:24 AM EDT Plan of Treatment Health Maintenance Due Date Last Done Comments Tobacco Counseling 1976 Depression Screening 1988 DTaP,Tdap and Td Vaccines (1 - Tdap) 1995 Pap Smear 1997 Mammogram 08/30/2021 08/30/2020, 04/18, 02/02/2018 Influenza Vaccine 04/17/2025 07/22/2019, , 04/30/2017 Adult BMI Screening 05/05/2026 05/05/2025 Tobacco Screening 05/05/2026 05/05/2025 Medical Devices Not on file Procedures Procedure Name Priority Date/Time Associated Diagnosis Comments SARS/FLU A+B/RSV BY NAAT/MOLECULAR (M4RT COLLECTION TUBE) STAT 05/05/2025 3:31 AM EDT POCT RAPID STREP A Routine 05/05/2025 3: 30 AM EDT MAMM SCREENING BILATERAL W CAD Routine 08/30/2020 8:32 AM EST Breast cancer screening by mammogram from Last 3 Months or Most Recently Relevant to Health Maintenance Results * SARS/FLU A+B/RSV by NAAT/Molecular (M4RT Collection Tube) (05/05/2025 3:31 AM EDT) FLU A PCR Negative Negative 05/05/2025 4:21 AM EDT [facility] FLU B PCR Negative Negative 05/05/2025 4:21 AM EDT [facility] RSV BY PCR Negative Negative 05/05/2025 4:21 AM EDT [facility] SARS COV 2 BY PCR Not Detected Not Detected 05/05/2025 4:21 AM EDT [facility] Swab Nasopharyngeal structure / Unknown 05/05/2025 3:31 AM EDT 05/05/2025 3:35 AM EDT [facility] - 05/05/2025 4:21 AM EDT The Xpert [...] operators who are performing tests using either GeneVelotton DX or GeneMiro systems and is limited to laboratories that [...] specimen repeat. Fact Sheet for Healthcare Providers: https://www.fda.gov/media/582715/download Fact Sheet for Patients: https://www.fda.gov/media/107788/download Edwin Unger MD MICROBIOLOGY - GENERAL ORDER TAWNYA Final Result Performing Organization Address City/[facility] Co de Phone Number [facility] [address] [place] [address], * POCT rapid strep A (05/05/2025 3:30 AM EDT) POC Rapid Strep Screen Negative Negative 05/05/2025 9:52 AM EDT [facility] 05/05/2025 3:30 AM EDT 05/05/2025 9:51 AM EDT Edwin Unger MD POINT OF CARE TEST ORDERABLE S Final Result Performing Organization Address [facility] de Phone Number [facility] [address] [place] [address], [place] * Mammography screening bilateral with CAD [...] d MAMM 1 YR Chloé Arevalo MD IM MAMMOGRAPHY ORDERABLES Final Result from Last 3 Months or Most Recently Relevant to Health Maintenance Insurance [facility] Care Teams Auto Parts Clerk Relationship Specialty Start Date End Date Elle Padilla, BL[employer] COATING EQUIPMENT TENDER-ALMOND PAN FINISHER [address] [place] [address] [place] [address] PCP - General Family Medicine 10/03/24
--- OUTSIDE RECORDS SUMMARY | 2025-05-07 21:37 | XMS_ITS | Encounter Summary ---
Author Organization [employer] s tem Address [id number] [address] [place] [address] Care Team Providers Care Nurse Head Name Role Phone Elle Padilla Primary Care Provider + Reason for Visit * Reason Onset Date Comments Med Refill 08/07/2017 Encounter Details Date Type Department Care Team (Late st Contact Info) Description 08/07/2017 Refill [facility] Family [facility] [address] [place] [phone] Shannon Khanna APRN-CNP [address] [facility] [address] [place] [address] Social History Tobacco Use Types Packs/Day Years [...] documented as of this encounter Care Teams Nurse Head Relationship Specialty Start Date End Date Elle Padilla APRN-WHITING MACHINE OPERATOR [address] [place] [address] PCP - General Family Medicine 10/03/24 documented as of this encounter
--- OUTSIDE RECORDS SUMMARY | 2025-05-07 21:37 | XMS_ITS | Encounter Summary ---
Author Organization [facility] tem Address [id number] [address] [place] [address] Care Team Providers Care Academic Records Specialist Name Role Phone Valerie Elle Orr APRN-SAMPLE PATTERNMAKER Primary Care Provider + Reason for Visit * Reason Onset Date Comments Med Refill 04/28/2017 Encounter Details Date Type Department Care Team (Late st Contact Info) Description 04/28/2017 [facility] [address] [place] [phone] Sindhu Banegas, RN Social History Tobacco [...] documented as of this encounter Care Teams Academic Records Specialist Relationship Specialty Start Date End Date Elle Padilla APRN-SAMPLE PATTERNMAKER [address] [place] [address] PCP - General Family Medicine 10/03/24 documented as of this encounter
--- NOTE | 2025-05-07 21:38 | ED_ITS ---
HPI - SOB/Dyspnea General Chief Complaint: Shortness of Breath/Dyspnea Stated Complaint: SOB Time Seen by Provider: 05/07/25 21:34 Mode of arrival: walk-in Limitations: no limitations History of Present Illness HPI Narrative: cc - shortness of breath 50 yr old smoker/vaper presents with shortness of breath that started yesterday - it began with sore throat and then she developed nasal congestion and chest congestion. She is coughing up whitish phlegm. No fever or chills. She had some GI symptoms yesterday - none today. No recent travel and no known ill exposures. She continues to smoke. She said she used her inhaler at home witho ut any improvement. She also took TheraFlu without any change. Dr Cooper saw her in March 2025 for similar complaints and discharged her home with prescription for prednisone andzpak after negative workup includng CXR, troponin, ddimer. Related Data Home Medications ?Medication ?Instructions ?Recorded ?Confirmed albuterol sulfate 90 mcg/actuation 2 puff inhalation Q 4H PRN 05/07/25 05/07/25 aerosol inhaler shortness of breath or wheez ing Previous Rx's ?Medication ?Instructions ?Recorded azithromycin 250 mg tablet 250 mg PO DAILY 4 days #4 t abs 05/07/25 prednisone 20 mg tablet 40 mg (2 x 20 mg) PO DAILY 3 days 05/07/25 #6 tabs Allergies Allergy/AdvReac Type Severity Reaction Status Date / Time No Known Drug Allergies Allergy Verified 05/07/25 21:37 PFSH PFSH Social History Little interest or pleasure in doing things: not at all Feeling down, depressed, or hopeless: not at all Exam Narrative Exam Narrative: Nurses notes and vital signs reviewed and patient is not hypoxic. afebrile General: Well-appearing and in no apparent distress. Skin: Warm, dry, no pallor noted. She has a stripe across her upper abdomen of patchy erythema along with a more diffuse erythematous rash along the upper and mid back. It is flat and not rough to the touch. Head: Normocephalic, atraumatic. Neck: Supple, non-tender. No cervical lymphadenopathy. Eye: Pupils are equal, round and EOMI. No scleral icterus. Ears, Nose, Mouth, and Throat: Mild nasal mucosal hypertrophy with some rhinorrhea. TM are clear, no posterior oropharynx erythema, uvula is mid-line. Oral mucosa is moist Cardiovascular: Regular Rate and Rhythm without murmur, gallop or rub. Respiratory: No accessory muscle use or respiratory distress. Lungs are clear to auscultation, no wheezing, rales or rhonchi Musculoskeletal: normal ROM, no calf or popliteal tenderness, no lower extremity edema/swelling GI: Abdomen is soft, non-distended. Normal bowel sounds. No tenderness to palpation/rash is nontender. No rebound, guarding, or rigidity noted. Neurological: A&O x4. No cranial nerve dysfunction observed. No truncal ataxia. Moves all extremities. Sensation intact. Psychiatric: Cooperative and interactive. Normal mood and affect. Constitutional Vital Signs, click to edit/add: Last Vital Signs Temp 97.8 F 05/07/25 21:31 Pulse 94 H 05/07/25 21:31 Resp 20 05/07/25 21:31 BP 105/75 05/07/25 21:31 Pulse Ox 95 05/07/25 21:44 O2 Del Method Room Air 05/07/25 21:44 Course Vital Signs Vital signs: Vital Signs Temperature 97.8 F 05/07/25 21:31 Pulse Rate 94 H 05/07/25 21:31 Respiratory Rate 20 05/07/25 21:31 Blood Pressure 105/75 05/07/25 21:31 Pulse Oximetry 95 05/07/25 21:31 Oxygen Delivery Method Room Air 05/07/25 21:31 Temperature 97.8 F 05/07/25 21:31 Pulse Rate 94 H 05/07/25 21:31 Respiratory Rate 20 05/07/25 21:31 Blood Pressure 105/75 05/07/25 21:31 Pulse Oximetry 95 05/07/25 21:44 Oxygen Delivery Method Room Air 05/07/25 21:44 MDM - SOB/Dyspnea MDM Narrative Medical decision making narrative: Patient was placed on environmental monitoring technician and EKG obtained by triage nurse - it was normal. Portable chest x-ray obtained. Chest x-ray shows changes consistent with COPD. No infiltrate, effusion, cardiomegaly, pneumothorax or other acute cardiopulmonary condition identified. Patient does not need a breathing treatment. She was given oral prednisone in the ED and also started on azithromycin - first dose given before discharge. We discussed her rash -it is not itchy or painful she did not even realize that she had it until we pointed out to her. I do not think this is anything contagious or that requires acute intervention at this time. The antibiotic will cover anything strep related and the prednisone will help if it is any sort of allergy. Differential Diagnosis Differential diagnosis: Likely acute exacerbation of chronic obstructive airways disease, congestive heart failure, community acquired pneumonia, asthma with exacerbation and pulmonary embolism Medical Records Attestation: I reviewed the patient's medical records. Imaging Data Chest x-ray: Attestation: I personally reviewed and interpreted this imaging study as follows: My impression: Hyperinflation consistent with chronic obstructive pulmonary disease. No infiltrate, effusion, cardiomegaly or pneumothorax noted. ECG Data Attestation: I personally reviewed and interpreted this ECG as follows: Interpretation: EKG interpretation: Emergency Department physician interpretation. Normal sinus rhythm at 97 bpm. Normal axis, normal intervals and no ST segment elevation or depression. Normal EKG Smoking Cessation Time spent discussing smoking cessation with patient: 3 to 10 minutes Patient Acknowledges Need for Cessation: Yes Discharge Plan Discharge Chief Complaint: Shortness of Breath/Dyspnea Clinical Impression: Acute infective exacerbation of chronic obstructive airway disease, URI (upper respiratory infection), Atypical exanthem Patient Disposition: Home, Self-Care Time of Disposition Decision: 21:49 Prescriptions / Home Meds: New prednisone 20 mg tablet 40 mg PO DAILY 3 Days Qty: 6 0RF azithromycin 250 mg tablet 250 mg PO DAILY 4 Days Qty: 4 0RF Rx Instructions: start on day 2 of therapy No Action albuterol sulfate 90 mcg/actuation HFA aerosol inhaler 2 puff INHALATION Q4H PRN (Reason: shortness of breath or wheezing) Print Language: Amharic Instructions: Upper Respiratory Infection (ED), COPD (Chronic Obstructive Pulmonary Disease) (ED), Acute Rash (ED) Referrals: [facility] [Primary Care Provider, Unknown] - 1 week
[2025-05-07 21:44] VITALS: O2SAT 95
--- NOTE | 2025-05-07 21:47 | PC.NURSE ---
States white expectorant
[2025-05-07] MEDS: PREDNISONE 20 MG TABLET 40 MG PO (22:05)
[2025-05-07] MEDS: AZITHROMYCIN 250 MG TABLET 500 MG PO (22:05)
== END 2025-05-07 22:11 | disposition home or self-care (01) ==
PROVIDERS: Emergency Provider Emergency Medicine
DX: J44.1 Chronic obstructive pulmonary disease with (acute) exacerbation (principal); J06.9 Acute upper respiratory infection, unspecified; R21 Rash and other nonspecific skin eruption; F17.200 Nicotine dependence, unspecified, uncomplicated
CPT/HCPCS: 71045; 93005; 99284; J7512